=== PATIENT | female | born 1950 | race Caucasian/White ===

== ENCOUNTER → 2017-09-26 | Outpatient (CLI) | payer MEDICARE | END | disposition home or self-care (01) | LOC: OLS 14:54 → LAB SHORT 14:54 | PROVIDERS: Nurse Practitioner Women's Health | DX: Z12.72 Encounter for screening for malignant neoplasm of vagina (principal) | CPT/HCPCS: 87624; G0123 ==

== ENCOUNTER → 2018-09-30 | Outpatient (CLI) | payer MEDICARE ==
[2018-10-02 15:06] LABS: HPV 16 Negative (Negative); HPV 18 Negative (Negative); HPV OTHER HR TYPES Negative (Negative)
== END | disposition home or self-care (01) ==
LOC: LAB 18:34 → LAB SHORT 18:34
PROVIDERS: Nurse Practitioner Women's Health
DX: Z12.72 Encounter for screening for malignant neoplasm of vagina (principal); Z91.89 Other specified personal risk factors, not elsewhere classified
CPT/HCPCS: 87624; G0123

== ENCOUNTER 2021-04-19 11:16 | Day surgery (SDC) | payer MEDICARE ==
[~2021-04-19] VITALS: Ht 162.6 cm; Wt 79.2 kg
[~2021-04-19 11:16] MED LIST: AMLOATOR PO; ATOR10 PO; Estrace Vagin42.5 GM VAG; HYDCHL25 PO; LEVSOD112 PO; LISI20 PO; MEDROL PO; MULVITA PO; POTCHL20ER PO
--- NOTE | 2021-04-19 18:39 | NUR ---
SHIFT SUMMARY PT A&OX4, VSS/RA, S/P R TKA, AQUACEL/CURTIS WRAP CDI, TEDS/SCDS/POLAR WILMAR ON. PAIN MANAGED WITH TYLENOL, TORADOL AND OXYCODONE. WILLIAM PO. VOIDING WELL. AMB SBA/FWW/GB; UP TO CHAIR. WILL REPORT TO ONCOMING NOC SHIKHA.
[2021-04-19] MEDS ORDERED: ASPI81CH PO (22:43)
[2021-04-19] MEDS ORDERED: Percocet 5-3251 EACH PO (22:44)
--- NOTE | 2021-04-20 04:24 | NUR ---
SHIFT SUMMARY POD1 L TKA. L KNEE WITH AQUACEL DRESSING AND CURTIS WRAP, CDI. POLAR PACK AND SCD'S IN PLACED. PT DENIES N/T. CAP REFILL WNL. PEDAL PULSES STRONG. VSS. AOX4. AMBULATING 1 SBA WITH FWW AND GB. TOLERATING AMBULATION WITH 5/10 PAIN LEVEL. PAIN MANAGED WITH 10MG OXY, TYLENOL AND TORADOL. ABX INFUSED VIA IV. SALINE LOCKED. TOLERATING PO INTAKE. DENIES NAUSEA AND VOMITING. CALL LIGHT WITHIN REACH. WILL PROVIDE REPORT TO ONCOMING NURSE.
[2021-04-20 05:22] LABS: BASOPHILS ABSOLUTE AUTO 0.02 K/mm3 (0.00-0.23); BASOPHILS PERCENT AUTO 0 % (0-2); EOSINOPHILS PERCENT AUTO 0 % (0-6); Hematocrit 34.7 % (33.0-51.0); Hemoglobin 11.6 g/dL (11.5-16.0); IMMATURE GRAN ABSOLUTE AUTO 0.05 K/mm3 (0.00-0.10); IMMATURE GRAN PERCENT AUTO 0 % (0-1); LYMPHOCYTES ABSOLUTE AUTO 0.96 K/mm3 (0.84-5.20); LYMPHOCYTES PERCENT AUTO 7 % (21-46); MONOCYTES PERCENT AUTO 4 % (4-13); Mean Corpuscular HGB 30.4 pg (26.0-34.0); Mean Corpuscular HGB Conc 33.4 g/dL (31.5-36.5); Mean Corpuscular Volume 91 fL (80-100); Mean Platelet Volume 11.9 fL (9.1-12.4); NEUTROPHILS ABSOLUTE AUTO 12.47 K/mm3 (1.96-9.15); NEUTROPHILS PERCENT AUTO 88 % (41-73); Platelet Count 252 K/mm3 (150-400); RDW Coefficient Variation 13.9 % (11.7-14.2); RDW Standard Deviation 46.5 fL (35.1-46.3); Red Blood Cell Count 3.82 M/mm3 (3.80-5.20)
[2021-04-20 05:40] LABS: Anion Gap 8 mmol/L (6-16); Blood Urea Nitrogen 18 mg/dL (8-24); CO2, Blood 24 mmol/L (21-32); Chloride, Blood 109 mmol/L (98-108); Creatinine, Blood 0.58 mg/dL (0.40-1.00); Glomerular Filtration Rate >60 (60-); Glucose, Blood 145 mg/dL (70-99); Potassium, Blood 3.6 mmol/L (3.5-5.5); Sodium, Blood 141 mmol/L (136-145)
--- NOTE | 2021-04-20 10:57 | NUR ---
DISCHARGE PT PROVIDED WITH WRITTEN AND VERBAL DISCHARGE INSTRUCTIONS, PT REPORTED UNDERSTANDING. PT CLEARED THERAPY, PAIN MANAGED, PT ABLE TO VOID, TOLERATING PO AND VSS PRIOR TO DISCHARGE. BELONGINGS RETURNED. POLAR PACK SENT HOME. PT'S VERBALIZED THAT HE HAD OBTAINED PRESCRIPTIONS. CLEAN DRESSINGS PROVIDED. PT ESCORTED OUT IN W/C BY [facility] CARBAJAL.
== END 2021-04-20 10:57 | disposition home or self-care (01) ==
LOC: ORSCMMR 11:16 → ORD 12:30 → ORSCMMR 12:30 → SURS 15:00 → ORSCMMR 04-20 10:57
PROVIDERS: Orthopaedic Surgery
PROC: 0SRD0JA Replacement of Left Knee Joint with Synthetic Substitute, Uncemented, Open Approach (ICD-10-PCS; principal; 2021-04-19 12:30)
PROC: 8E0Y0CZ Robotic Assisted Procedure of Lower Extremity, Open Approach (ICD-10-PCS; principal; 2021-04-19 12:30)
DX: M17.12 Unilateral primary osteoarthritis, left knee (principal); I10 Essential (primary) hypertension; E03.9 Hypothyroidism, unspecified; Z79.899 Other long term (current) drug therapy
CPT/HCPCS: 27447; S2900; 36415; 73560-LT; 80048; 85025; 97110; 97116; 97161; 97530; A9270; C1776; J0171; J0690; J0735; J1100; J1885; J2250; J2405; J2704; J2795; J3010; J7120

== ENCOUNTER → 2021-08-26 | Outpatient (CLI) | payer MEDICARE ==
[~2021-08-26] MED LIST changes: +ASPI81CH PO; +Percocet 5-3251 EACH PO
[2021-08-26 16:17] LABS: Source, Urine Clean Catch
[2021-08-26 18:01] LABS: Appearance, Urine Hazy (Clear); Bilirubin, Urine Neg (Neg); Blood, Urine 4+ (Neg); Color, Urine Yellow (P-Yellow); Glucose Qualitative, Urine Neg (Neg); Ketones, Urine Neg (Neg); Leukocyte Esterase, Urine 3+ (Neg); Nitrite, Urine Neg (Neg); Protein, Urine 3+ (Neg); Urobilinogen, Urine NORM (Normal)
[2021-08-26 18:15] LABS: White Blood Cells, Urine TNTC /hpf (0-5)
[2021-08-26 18:16] LABS: Bacteria Many /hpf; RBC Cast 0-2 /lpf (0); Red Blood Cells, Urine TNTC /hpf (0-2); Squamous Epithelial Cells Mod /hpf (Few); WBC Cast 0-2 /lpf (0)
== END | disposition home or self-care (01) ==
LOC: LAB SHORT 16:15
PROVIDERS: Obstetrics & Gynecology
DX: R30.9 Painful micturition, unspecified (principal)
CPT/HCPCS: 81001; 87077; 87086; 87186

== ENCOUNTER → 2021-09-22 | Outpatient (CLI) | payer MEDICARE ==
[2021-09-22 10:18] LABS: Source, Urine Clean Catch
[2021-09-22 10:59] LABS: Appearance, Urine Turbid (Clear); Bilirubin, Urine Neg (Neg); Blood, Urine 5+ (Neg); Color, Urine Yellow (P-Yellow); Glucose Qualitative, Urine Neg (Neg); Ketones, Urine Neg (Neg); Leukocyte Esterase, Urine 3+ (Neg); Nitrite, Urine Neg (Neg); Protein, Urine 3+ (Neg); Specific Gravity, Urine 1.015 (1.003-1.022); Urobilinogen, Urine NORM (Normal)
[2021-09-22 11:24] LABS: Red Blood Cells, Urine TNTC /hpf (0-2); Squamous Epithelial Cells Rare /hpf (Few); White Blood Cells, Urine TNTC /hpf (0-5)
[2021-09-22 11:25] LABS: Bacteria Few /hpf
== END | disposition home or self-care (01) ==
LOC: LAB SHORT 09:15
PROVIDERS: Obstetrics & Gynecology
DX: R10.2 Pelvic and perineal pain (principal)
CPT/HCPCS: 81001

== ENCOUNTER → 2021-10-13 | Outpatient (CLI) | payer MEDICARE | END | disposition home or self-care (01) | LOC: LAB 10:00 → LAB SHORT 10:00 | DX: R82.90 Unspecified abnormal findings in urine (principal) | CPT/HCPCS: 87077; 87086; 87186 ==

== ENCOUNTER → 2021-11-24 | Outpatient (CLI) | payer MEDICARE ==
[~2021-11-24] MED LIST changes: +ACET325 PO; +AMLO10 PO; +Acerola C500 MG PO; +EUTHYROX112 MCG PO; +HYDCHL50 PO; +K-Dur20 MEQ PO; +LEVFLO500 PO; +METHENAMINE MAND1 GM PO; +METR500 PO; +VISBIOME 112.51 EACH PO
== END | disposition home or self-care (01) ==
LOC: LAB 10:45 → LAB SHORT 10:45
DX: N39.0 Urinary tract infection, site not specified (principal)
CPT/HCPCS: 87086

== ENCOUNTER → 2022-03-08 | Outpatient (CLI) | payer MEDICARE ==
[2022-03-08 11:07] LABS: BASOPHILS ABSOLUTE AUTO 0.06 K/mm3 (0.00-0.23); BASOPHILS PERCENT AUTO 1 % (0-2); EOSINOPHILS ABSOLUTE AUTO 0.18 K/mm3 (0.00-0.68); EOSINOPHILS PERCENT AUTO 2 % (0-6); Hemoglobin 13.7 g/dL (11.5-16.0); IMMATURE GRAN ABSOLUTE AUTO 0.02 K/mm3 (0.00-0.10); IMMATURE GRAN PERCENT AUTO 0 % (0-1); LYMPHOCYTES ABSOLUTE AUTO 1.86 K/mm3 (0.84-5.20); LYMPHOCYTES PERCENT AUTO 21 % (21-46); MONOCYTES ABSOLUTE AUTO 0.78 K/mm3 (0.16-1.47); MONOCYTES PERCENT AUTO 9 % (4-13); Mean Corpuscular HGB 29.5 pg (26.0-34.0); Mean Corpuscular HGB Conc 32.6 g/dL (31.5-36.5); Mean Corpuscular Volume 90 fL (80-100); Mean Platelet Volume 10.9 fL (9.1-12.4); NEUTROPHILS ABSOLUTE AUTO 6.08 K/mm3 (1.96-9.15); NEUTROPHILS PERCENT AUTO 68 % (41-73); Platelet Count 347 K/mm3 (150-400); RDW Coefficient Variation 15.1 % (11.7-14.2); RDW Standard Deviation 49.4 fL (35.1-46.3); Red Blood Cell Count 4.65 M/mm3 (3.80-5.20); White Blood Cell Count 8.98 K/mm3 (4.00-11.30)
[2022-03-08 11:19] LABS: Albumin, Blood 3.7 g/dL (3.4-5.0); Bilirubin, Total 0.5 mg/dL (0.1-1.0); Calcium, Blood 9.7 mg/dL (8.5-10.1); Creatinine, Blood 0.64 mg/dL (0.40-1.00); Globulin, Blood 3.8 g/dL (2.2-4.0); Potassium, Blood 3.9 mmol/L (3.5-5.5); Total Protein, Blood 7.5 g/dL (6.4-8.2)
== END | disposition home or self-care (01) ==
LOC: LAB 09:59 → LAB SHORT 09:59
PROVIDERS: Internal Medicine
DX: N32.1 Vesicointestinal fistula (principal)
CPT/HCPCS: 36415; 80053; 85025

== ENCOUNTER 2022-04-06 06:46 | Day surgery (SDC) | payer MEDICARE ==
[~2022-04-06] VITALS: Ht 162.6 cm; Wt 77.0 kg
== END 2022-04-06 09:35 | disposition home or self-care (01) ==
LOC: ORSCSDS 06:46
PROVIDERS: Surgery
PROC: 0DBN8ZX Excision of Sigmoid Colon, Via Natural or Artificial Opening Endoscopic, Diagnostic (ICD-10-PCS; principal; 2022-04-06 08:00)
DX: N32.1 Vesicointestinal fistula (principal); K57.20 Diverticulitis of large intestine with perforation and abscess without bleeding; K56.699 Other intestinal obstruction unspecified as to partial versus complete obstruction; I10 Essential (primary) hypertension; E03.9 Hypothyroidism, unspecified; Z79.899 Other long term (current) drug therapy
CPT/HCPCS: 88305; J2250; J2704; J7120

== ENCOUNTER 2022-08-05 09:50 | Inpatient (IN) | payer MEDICARE ==
[~2022-08-05] VITALS: Ht 162.6 cm; Wt 79.4 kg
[2022-08-05 10:16] LABS: BASOPHILS ABSOLUTE AUTO 0.04 K/mm3 (0.00-0.23); BASOPHILS PERCENT AUTO 1 % (0-2); EOSINOPHILS ABSOLUTE AUTO 0.12 K/mm3 (0.00-0.68); EOSINOPHILS PERCENT AUTO 2 % (0-6); Hematocrit 43.4 % (33.0-51.0); Hemoglobin 14.7 g/dL (11.5-16.0); IMMATURE GRAN ABSOLUTE AUTO 0.02 K/mm3 (0.00-0.10); IMMATURE GRAN PERCENT AUTO 0 % (0-1); LYMPHOCYTES PERCENT AUTO 13 % (21-46); MONOCYTES ABSOLUTE AUTO 0.55 K/mm3 (0.16-1.47); MONOCYTES PERCENT AUTO 7 % (4-13); Mean Corpuscular HGB 30.1 pg (26.0-34.0); Mean Corpuscular HGB Conc 33.9 g/dL (31.5-36.5); Mean Corpuscular Volume 89 fL (80-100); Mean Platelet Volume 11.1 fL (9.1-12.4); NEUTROPHILS ABSOLUTE AUTO 6.19 K/mm3 (1.96-9.15); NEUTROPHILS PERCENT AUTO 78 % (41-73); Platelet Count 250 K/mm3 (150-400); RDW Coefficient Variation 13.6 % (11.7-14.2); RDW Standard Deviation 44.8 fL (35.1-46.3); Red Blood Cell Count 4.88 M/mm3 (3.80-5.20); White Blood Cell Count 7.92 K/mm3 (4.00-11.30)
[2022-08-05] MEDS ORDERED: Dilaudid 2 mg Ta2 MG (10:19)
[2022-08-05 10:42] LABS: Albumin, Blood 3.9 g/dL (3.4-5.0); Bilirubin, Total 1.7 mg/dL (0.1-1.0); Bun/Creatinine Ratio 29.8 (12.0-20.0); Calcium, Blood 9.3 mg/dL (8.5-10.1); Creatinine, Blood 0.64 mg/dL (0.40-1.00); Globulin, Blood 4.1 g/dL (2.2-4.0); Potassium, Blood 3.7 mmol/L (3.5-5.5)
[2022-08-05] MEDS ORDERED: AMLO5 PO (16:29)
--- NOTE | 2022-08-05 17:19 | NUR ---
PATIENT IS ALERT AND ORIENTED AND COOPERATIVE WITH CARE. C/O ABDOMINAL PAIN 5/10 MEDICATED PER EMAR. PATIENT IS NPO. INDEPENDENT IN HER ROOM. NS AT 75 ML/HR. DR. HI HAS BEEN CONSULTED. DR. LEUNG ORDERED HYDRALAZINE FOR THE PATIENT'S HTN. WILL CONTINUE TO MONITOR
--- NOTE | 2022-08-06 04:55 | NUR ---
SHIFT SUMMARY PT A&OX4, PLEASANT AND COOPERATIVE WITH CARE. NO ACUTE CHANGES, VSS. MEDICATED TWICE FOR PAIN. NPO SINCE MIDNIGHT. INDEPENDENT IN ROOM. PER DR. LEUNG POSSIBLE S/P TODAY BASED ON LAB RESULTS. CALLS APPROPRIATELY, CALL LIGHT WITHIN REACH.
[2022-08-06 05:02] LABS: BASOPHILS ABSOLUTE AUTO 0.03 K/mm3 (0.00-0.23); BASOPHILS PERCENT AUTO 0 % (0-2); EOSINOPHILS PERCENT AUTO 1 % (0-6); Hematocrit 40.9 % (33.0-51.0); Hemoglobin 13.8 g/dL (11.5-16.0); IMMATURE GRAN ABSOLUTE AUTO 0.02 K/mm3 (0.00-0.10); IMMATURE GRAN PERCENT AUTO 0 % (0-1); LYMPHOCYTES ABSOLUTE AUTO 1.03 K/mm3 (0.84-5.20); LYMPHOCYTES PERCENT AUTO 14 % (21-46); MONOCYTES ABSOLUTE AUTO 0.66 K/mm3 (0.16-1.47); MONOCYTES PERCENT AUTO 9 % (4-13); Mean Corpuscular HGB 29.9 pg (26.0-34.0); Mean Corpuscular HGB Conc 33.7 g/dL (31.5-36.5); Mean Corpuscular Volume 89 fL (80-100); Mean Platelet Volume 11.3 fL (9.1-12.4); NEUTROPHILS ABSOLUTE AUTO 5.69 K/mm3 (1.96-9.15); NEUTROPHILS PERCENT AUTO 76 % (41-73); Platelet Count 210 K/mm3 (150-400); RDW Coefficient Variation 13.7 % (11.7-14.2); RDW Standard Deviation 44.9 fL (35.1-46.3); Red Blood Cell Count 4.62 M/mm3 (3.80-5.20); White Blood Cell Count 7.53 K/mm3 (4.00-11.30)
[2022-08-06 05:22] LABS: Albumin, Blood 3.4 g/dL (3.4-5.0); Albumin/Globulin Ratio 0.9 (0.8-1.8); Bilirubin, Total 0.8 mg/dL (0.1-1.0); Bun/Creatinine Ratio 19.4 (12.0-20.0); Calcium, Blood 8.7 mg/dL (8.5-10.1); Creatinine, Blood 0.67 mg/dL (0.40-1.00); Globulin, Blood 3.8 g/dL (2.2-4.0); Magnesium, Blood 2.1 mg/dL (1.6-2.4); Potassium, Blood 2.8 mmol/L (3.5-5.5); Total Protein, Blood 7.2 g/dL (6.4-8.2)
--- NOTE | 2022-08-06 10:06 | NUR ---
PT TAKEN TO OR.
--- NOTE | 2022-08-06 13:01 | NUR ---
POST OP ARRIVED FROM PACU VIA JOH[place]ASHLEE, AWAKE, A&OX4, C/O INCISIONAL PAIN AND NAUSEA, MEDICATED PER EMAR, LUNGS CLEAR, HRR, HYPOACTIVE BT'S X4, ABD SOFT, LAP INCISIONS X4 ON ABD W/ 2X2 GAUZE AND TEGADERM C/D/I, PT TAKING SIPS OF WATER, CONT. TO MONITOR VS AND ANY CHANGES.
--- NOTE | 2022-08-06 18:27 | NUR ---
SUMMARY S/P LAP WATSON BY DR. HI TODAY, VSS, PAIN IS TOLERABLE W/ PERCOCET, PT HAS AMBULATED, VOIDED X2 SINCE POST OP, TOLERATING REGULAR DIET WELL, SLEPT MOST OF AFTERNOON, CURRENTLY OOB TO CHAIR FOR DINNER, NO ACUTE CHANGES THIS SHIFT.
--- NOTE | 2022-08-07 04:57 | NUR ---
SHIFT SUMMARY PT A&OX4, PLEASANT AND COOPERATIVE WITH CARE. NO ACUTE CHANGES, VSS. MEDICATING FOR PAIN PER EMAR. TOLERATING PO INTAKE. 4 LAP SITES W/NAOMI, 2 HAVE LIGHT/DRIED DRAINAGE. INDEPENDENT IN ROOM. CALLS APPROPRIATELY, CALL LIGHT WITHIN REACH.
[2022-08-07 08:07] LABS: BASOPHILS ABSOLUTE AUTO 0.03 K/mm3 (0.00-0.23); BASOPHILS PERCENT AUTO 0 % (0-2); EOSINOPHILS ABSOLUTE AUTO 0.07 K/mm3 (0.00-0.68); EOSINOPHILS PERCENT AUTO 1 % (0-6); Hematocrit 35.8 % (33.0-51.0); IMMATURE GRAN ABSOLUTE AUTO 0.03 K/mm3 (0.00-0.10); IMMATURE GRAN PERCENT AUTO 0 % (0-1); LYMPHOCYTES ABSOLUTE AUTO 1.72 K/mm3 (0.84-5.20); LYMPHOCYTES PERCENT AUTO 19 % (21-46); MONOCYTES ABSOLUTE AUTO 0.83 K/mm3 (0.16-1.47); MONOCYTES PERCENT AUTO 9 % (4-13); Mean Corpuscular HGB 29.9 pg (26.0-34.0); Mean Corpuscular HGB Conc 33.5 g/dL (31.5-36.5); Mean Corpuscular Volume 89 fL (80-100); Mean Platelet Volume 11.6 fL (9.1-12.4); NEUTROPHILS ABSOLUTE AUTO 6.64 K/mm3 (1.96-9.15); NEUTROPHILS PERCENT AUTO 71 % (41-73); Platelet Count 207 K/mm3 (150-400); RDW Coefficient Variation 13.9 % (11.7-14.2); RDW Standard Deviation 45.1 fL (35.1-46.3); Red Blood Cell Count 4.01 M/mm3 (3.80-5.20); White Blood Cell Count 9.32 K/mm3 (4.00-11.30)
[2022-08-07 09:45] LABS: Albumin, Blood 3.3 g/dL (3.4-5.0); Bilirubin, Total 0.7 mg/dL (0.1-1.0); Bun/Creatinine Ratio 20.3 (12.0-20.0); Calcium, Blood 8.4 mg/dL (8.5-10.1); Creatinine, Blood 0.64 mg/dL (0.40-1.00); Globulin, Blood 3.3 g/dL (2.2-4.0); Potassium, Blood 3.1 mmol/L (3.5-5.5); Total Protein, Blood 6.6 g/dL (6.4-8.2)
[2022-08-07] MEDS ORDERED: Percocet 5-3251 EACH PO (11:31)
--- NOTE | 2022-08-07 12:35 | NUR ---
DISCHARGE SUMMARY POD1 LAP WATSON, A/OX4, VSS, TOLERATING PO, PAIN WELL MANAGED, INDEPENDENT IN THE ROOM, VOIDING WELL, PASSING FLATUS, IV ACCESS REMOVED WHILE DISCUSSING DISCHARGE INSTRUCTIONS. DISCUSSED DISCHARGE INSTRUCTIONS INCLUDING HOME CARE, S/SX TO WATCH FOR, MEDICATIONS, INCISION CARE, AND FOLLOW UP APPOINTMENTS. PT HAD NO QUESTIONS AND WAS PROVIDED WRITTEN INSTRUCTIONS WITH CONTACT INFORMATION FOR BOTH FOLLOW UP APPOINTMENTS. PT DECLINED WC ESCORT AND WALKED OUT WITH HER TO GO HOME.
== END 2022-08-07 12:27 | disposition home or self-care (01) | DRG 418 ==
LOC: ER 09:50 → SURS 15:00
PROVIDERS: Family Medicine; Physician Assistant; Surgery; ADMIT Internal Medicine
PROC: BF502Z0 Other Imaging of Bile Ducts using Fluorescing Agent, Intraoperative (ICD-10-PCS; 2022-08-06)
PROC: 0FT44ZZ Resection of Gallbladder, Percutaneous Endoscopic Approach (ICD-10-PCS; principal; 2022-08-06 10:00)
DX: K85.10 Biliary acute pancreatitis without necrosis or infection (principal); K80.21 Calculus of gallbladder without cholecystitis with obstruction; N32.1 Vesicointestinal fistula; I10 Essential (primary) hypertension; E03.9 Hypothyroidism, unspecified; E66.9 Obesity, unspecified; Z96.652 Presence of left artificial knee joint; Z68.30 Body mass index [BMI] 30.0-30.9, adult; Z28.21 Immunization not carried out because of patient refusal; Z90.722 Acquired absence of ovaries, bilateral; Z98.51 Tubal ligation status; Z90.710 Acquired absence of both cervix and uterus; Z90.49 Acquired absence of other specified parts of digestive tract; Z79.890 Hormone replacement therapy; Z79.899 Other long term (current) drug therapy
CPT/HCPCS: 36415; 71046; 74181; 76705; 80053; 83690; 83735; 84484; 85025; 88304; 93005; 93010; 96365; 96366; 96375; 99285-25; A9270; C9113; J0360; J1100; J1170; J1650; J1885; J2250; J2270; J2405; J2543; J2704; J2710; J2765; J2795; J3010; J3480; J7030; J7050

== ENCOUNTER → 2024-11-10 | Outpatient (CLI) | payer MEDICARE ==
[~2024-11-10] MED LIST changes: +AMLO5 PO; +Dilaudid 2 mg Ta2 MG
[2024-11-10 12:39] LABS: Protein, Urine Quantitative 17.1 mg/dL (0.0-11.9)
== END | disposition home or self-care (01) ==
LOC: LAB 09:26 → LAB SHORT 09:26
PROVIDERS: Internal Medicine
DX: R80.9 Proteinuria, unspecified (principal)
CPT/HCPCS: 84156